=== PATIENT | male | born 1990 | race African-American/Black ===

== ENCOUNTER 2016-08-17 10:25 | Emergency (ER) | payer BC ==
--- NOTE | 2016-08-17 10:53 | EDM.PDOC ---
ED HPI GENERAL MEDICAL PROBLEM - General Chief Complaint: General Stated Complaint: racing heart, inspiratory pain with breathing Time Seen by Provider: 08/17/16 10:35 Source of Information: Reports: Patient History Limitations: Reports: No limitations - History of Present Illness INITIAL COMMENTS - FREE TEXT/NARRATIVE: The patient presents with complaint of chest pain that he has had beginning on Sunday. He reports on Sunday he was doing a push-up and felt something pop and pull in his left chest. Since then he has had pain constantly but it has worsened today and is worsened with movement and inspiration/expiration. He notes he does have pain on palpation of the chest overlying the superior margin of the left pectoralis muscle. He states the pain had increased while he was up going to get something out of his car and he also felt his "heart racing" at that time. He denies other symptoms or complaints. Left Upper Chest Pain Score (Numeric/FACES): 8 - Related Data Allergies Allergy/AdvReac Type Severity Reaction Status Date / Time No Known Allergies Allergy Verified 08/17/16 10:34 Home Meds: Home Meds Acetaminophen [Tylenol] 325 mg PO ASDIRECTED 10/20/14 [History] Ibuprofen [Advil] 200 mg PO ASDIRECTED 10/20/14 [History] Past Medical History - Past Health History Medical/Surgical History: Denies Medical/Surgical History Social & Family History - Tobacco Use Smoking Status *Q: Never Smoker Years of Tobacco use: 0 Used Tobacco, but Quit: No Second Hand Smoke Exposure: Yes - Alcohol Use Days Per Week of Alcohol Use: 0 (No previous DWI, etc.) Number of Drinks Per Day: 0 Total Drinks Per Week: 0 - Recreational Drug Use Recreational Drug Use: Yes Drug Use in Last 12 Months: No Recreational Drug Type: Reports: Marijuana/Hashish (Experimented at age 17) - Living Situation & Occupation Living situation: Reports: (April 2013, no children) Occupation: employed ([employer]) ED ROS GENERAL - Review of Systems Review Of Systems: ROS reveals no pertinent complaints other than HPI. ED EXAM, GENERAL - Physical Exam Exam: See Below Exam Limited By: No limitations General Appearance: alert, WD/WN, no apparent distress Eye Exam: bilateral eye: EOMI, normal inspection, PERRL Ears: normal external exam, normal canal, hearing grossly normal, normal TMs Ear Exam: bilateral ear: auricle normal, canal normal, TM normal Nose: normal inspection, normal mucosa, no blood Throat/Mouth: Normal inspection, Normal lips, Normal teeth, Normal gums, Normal oropharynx, Normal voice, No airway compromise Head: atraumatic, normocephalic Neck: normal inspection, supple, non-tender, full range of motion Respiratory/Chest: no respiratory distress, lungs clear, normal breath sounds, no accessory muscle use, other (Tenderness on palpation of superior margin of left pectoralis muscle and pain is reproduced when patient moves left arm. No palpable tears or defects in pectoralis muscle and no erythema, calor, swelling , or fluctuance. ) Cardiovascular: normal peripheral pulses, regular rate, rhythm, no edema, no gallop, no murmur, no rub Peripheral Pulses: 2+: radial (L), radial (R), dorsalis pedis (L), dorsalis pedis (R) GI/Abdominal: normal bowel sounds, soft, non tender, no organomegaly, no distention Back Exam: normal inspection, full range of motion. No: CVA tenderness (L), CVA tenderness (R), paraspinal tenderness, vertebral tenderness Extremities: normal inspection, normal range of motion, non-tender, no pedal edema, normal capillary refill Neurological: alert, oriented, CN II-XII intact, normal cognition, normal gait, normal reflexes, no motor/sensory deficits Skin Exam: Warm, Dry, Intact, Normal color, No rash Lymphatic: no adenopathy EKG INTERPRETATION EKG Date: 08/17/16 Time: 10:47 Rhythm: NSR Rate (beats/min): 76 [place]: normal P-wave: present QRS: normal ST-T: normal QT: normal Comparison: NA - no prior EKG EKG Interpretation Comments: Normal EKG. No ST elevation or signs of ischemia or other abnormalities. Course - Vital Signs Last Recorded V/S: Last Vital Signs Temp 36.7 C 08/17/16 10:25 Pulse 78 08/17/16 12:00 Resp 14 08/17/16 12:00 BP 118/72 08/17/16 12:00 Pulse Ox 99 08/17/16 12:00 - Orders/Labs/Meds Orders: Active Orders 24 hr Category Date Time Status EKG Documentation Completion [RC] ASDIRECTED Care 04/27/17 10:40 Active Chest 1V Frontal [CR] Stat Exams 08/17/16 10:43 Taken Labs: Laboratory Tests 08/17/16 08/17/16 Range/Units 10:45 10:45 WBC 3.6 L (4.0-10.2) K/uL RBC 4.76 (4.33-5.41) M/uL Hgb 14.8 D (13.1-16.8) g/dL Hct 42.0 (39.0-49.0) % MCV 88.2 (84.0-98.0) fL MCH 31.1 (28.2-33.3) pg MCHC 35.2 (31.7-36.0) g/dL RDW 11.8 (11.2-14.1) % Plt Count 287 (150-350) K/uL Neut % (Auto) 60.3 (45.0-80.0) % Lymph % (Auto) 25.2 (10.0-50.0) % [place] % (Auto) 7.8 (2.0-14.0) % Eos % (Auto) 5.0 (0.0-5.0) % Baso % (Auto) 1.7 (0.0-2.0) % Neut # (Auto) 2.15 (1.40-7.00) K/uL Lymph # (Auto) 0.90 (0.50-3.50) K/uL [place] # (Auto) 0.28 (0.00-1.00) K/uL Eos # (Auto) 0.18 (0.00-0.50) K/uL Baso # (Auto) 0.06 (0.00-0.20) K/uL Sodium 140 (136-145) mmol/L Potassium 3.8 (3.5-5.1) mmol/L Chloride 104 (98-107) mmol/L Carbon Dioxide 27.7 (21.0-32.0) mmol/L BUN 11 (7-18) mg/dL Creatinine 0.93 (0.51-1.17) mg/dL Est Cr Clr Drug Dosing 99.90 mL/min Estimated GFR (MDRD) > 60 mL/min Glucose 100 (74-106) mg/dL Calcium 8.7 (8.5-10.1) mg/dL Total Bilirubin 0.5 (0.2-1.0) mg/dL AST 18 (15-37) U/L ALT 36 (12-78) U/L Alkaline Phosphatase 56 (46-116) IU/L Creatine Kinase 148 (26-308) U/L Creatine Kinase Index 0.9 (0.0-2.5) % CK-MB (CK-2) 1.40 (0.00-3.60) ng/mL Troponin I 0.000 (0.000-0.056) ng/mL Total Protein 7.1 (6.4-8.2) g/dL Albumin 3.6 (3.4-5.0) g/dL Meds: Medications Discontinued Medications Generic Name Dose Route Start Last Admin Trade Name Freq PRN Reason Stop Dose Admin Ketorolac Tromethamine 60 mg 08/17/16 12:43 Toradol IM 08/17/16 12:44 ONETIME ONE - Radiology Interpretation Free Text/Narrative:: CXR negative. Departure - Departure Time of Disposition: 13:15 Disposition: Home, Self-Care 01 Clinical Impression: Muscle strain of chest wall Qualifiers: Encounter type: initial encounter Qualified Code(s): S29.011A - Strain of muscle and tendon of front wall of thorax, initial encounter Referrals: PCP,Unknown [Primary Care Provider] - Forms: ED Department Discharge - My Orders Last 24 Hours: My Active Orders 08/17/16 10:40 EKG Documentation Completion [RC] ASDIRECTED 08/17/16 10:43 Chest 1V Frontal [CR] Stat - Assessment/Plan Last 24 Hours: My Active Orders 08/17/16 10:40 EKG Documentation Completion [RC] ASDIRECTED 08/17/16 10:43 Chest 1V Frontal [CR] Stat Assessment:: Muscle strain of chest wall, left pectoralis. Plan: 1. Ruled out acute WI and other emergent causes of chest pain. 2. Toradol 60 mg IM in ER x 1. 3. Instructed may begin OTC ibuprofen 400-800 mg every 6 hours as needed for pain. 4. Ice affected area in 20 minute cycles every 1-2 hours as able and as tolerated. 5. Gradually advance activity and lifting as tolerated. 6. Followup with PCP in 5-7 days if symptoms persist or sooner if symptoms worsen. 7. Return to ER with increased/refractory/severe chest pain, shortness of breath , racing heart, refractory palpitations, or other emergent concerns.
[2016-08-17 11:25] LABS: CHLORIDE,CL 104 mmol/L (98-107); SODIUM,NA 140 mmol/L (136-145)
[2016-08-17] MEDS ORDERED: Ketorolac 60 MG/2 ML SDV IM ONE (12:43)
[2016-08-18 20:48] VITALS: BP 109/57
== END 2016-08-18 13:35 | disposition home or self-care (01) ==
LOC: LL.ED 10:25
DX: S29.011A Strain of muscle and tendon of front wall of thorax, initial encounter (principal); X58.XXXA Exposure to other specified factors, initial encounter
CPT/HCPCS: 36415; 71010; 80053; 82550; 82553; 84484; 85025; 93005; 96372; 99284; J1885

== ENCOUNTER 2017-02-02 12:58 | Emergency (ER) | payer BC, OTHER ==
[2017-02-02 13:40] LABS: CHLORIDE,CL 102 mmol/L (98-107); SODIUM,NA 139 mmol/L (136-145)
[2017-02-02] MEDS ORDERED: Diphtheria,Pertussis(Acell),Tetanus Vaccine 0.5 ML SDV ONE (14:17)
[2017-02-02] MEDS ORDERED: HYDROmorphone 1 MG/ML Syringe IVPUSH ONE (14:38)
--- NOTE | 2017-02-02 16:08 | ER ---
HISTORY OF PRESENT ILLNESS: The patient is a 26-year-old, who works at [employer], patient was at work, working with a hoist, he was picking up a blade. States that the hoist started moving, hitting him in the right shoulder, right neck, ending up in his left ankle. The patient denies loss of consciousness. Denies being diaphoretic, was brought in by ambulance for evaluation. He has limited range of motion. PHYSICAL EXAMINATION: GENERAL: He is alert. LUNGS: Clear. HEENT: At this time, he was examined, he is normocephalic and atraumatic. NECK: Has neck pain on range of motion, but feels pretty stable. MUSCULOSKELETAL: He complains of right shoulder pain. He has full range of motion of his right shoulder and left shoulder. He has a bilateral left chest pain of an incident. HEART: Regular rate and rhythm. SKIN: Dry and Intact. LABORATORY DATA: A chest x-ray was obtained, which reveal no contusions at this time, and we went ahead and x-rayed his right shoulder which was significant for normal x-ray. ASSESSMENT: Multiple trauma. Trauma to chest, right shoulder, and left ankle. No fractures. No ARDS. PLAN: At this time, we will ice the neck and shoulder and ankle. We will probably put him on a Cam walker to ambulate on left ankle, and Motrin for pain. AGUSTÍN Marshall MD /[id number] MTDD
== END 2017-02-02 16:00 | disposition home or self-care (01) ==
LOC: LL.ED 12:58
DX: S29.9XXA Unspecified injury of thorax, initial encounter (principal); S49.91XA Unspecified injury of right shoulder and upper arm, initial encounter; S99.912A Unspecified injury of left ankle, initial encounter; X58.XXXA Exposure to other specified factors, initial encounter
CPT/HCPCS: 36415; 71010; 72125; 73020; 73610; 80053; 82550; 82553; 83605; 84484; 85025; 90715; 96374; 99285; J1170

== ENCOUNTER 2018-06-19 23:02 | Emergency (ER) | payer OTHER ==
--- NOTE | 2018-06-19 23:09 | EDM.PDOC ---
ED HPI GENERAL MEDICAL PROBLEM - General Chief Complaint: General Stated Complaint: R HAND #5 DIGIT INJURY Time Seen by Provider: 06/19/18 23:05 Source of Information: Reports: Patient, Old Records ([facility] EMR. No paper hospital chart available.) History Limitations: Reports: No Limitations - History of Present Illness INITIAL COMMENTS - FREE TEXT/NARRATIVE: The patient was brought to the emergency room via transport vehicle from [facility] for evaluation of a Workmen's Compensation injury, including a contusion of digit #5 of the right hand, which occurred at about 22:05 hours this evening. The patient apparently caught his finger on a metal plate with no previous injury to this digit. He is right-handed. He complains of 9-10/10 throbbing pain. No history of foreign body, paresthesias, fall, neurological deficits, or other complaints or injuries. The patient denies any chest pain/pressure, heart flutter, dizziness, orthostasis, orthopnea, diaphoresis, paresthesias, recent decreased exercise tolerance, or any other anginal-type symptoms. No recent history of abdominal pain, heartburn, nausea, diarrhea, melena, gross hematochezia, or any food intolerance, including fatty foods, etc.. The patient also denies any recent fever, cough, wheezing, dyspnea, etc.. Onset: Today, Sudden Onset Date: 06/19/18 Onset Time: 22:05 Duration: Constant Location: Reports: Upper Extremity, Right. Denies: Head, Face, Neck, Chest, Abdomen, Back, Pelvis, Upper Extremity, Left, Radiates to Quality: Reports: Same as Previous Episode, Throbbing Severity: Severe Improves with: Reports: Rest Worsens with: Reports: Movement Context: Reports: Trauma (As above) Associated Symptoms: Denies: Confusion, Chest Pain, Cough, Diaphoresis, Fever/ Chills, Headaches, Loss of Appetite, Nausea/Vomiting, Shortness of Breath, Syncope, Weakness Treatments [employer]: Reports: Cold Therapy Right Finger-Little Pain Score (Numeric/FACES): 9 - Related Data Allergies Allergy/AdvReac Type Severity Reaction Status Date / Time No Known Allergies Allergy Verified 06/19/18 23:17 Past Medical History HEENT History: Reports: None. Denies: Hard of Hearing, Impaired Vision Cardiovascular History: Reports: None. Denies: CAD, Hypertension Respiratory History: Reports: None Gastrointestinal History: Reports: GERD. Denies: Hepatitis, Pancreatitis Genitourinary History: Reports: None Musculoskeletal History: Reports: Arthritis, Back Pain, Chronic, Osteoarthritis , Other (See Below). Denies: Fracture Other Musculoskeletal History: Right-sided L5 sacralization Neurological History: Reports: Concussion, Headaches, Chronic, Head Trauma, Other (See Below). Denies: Migraines Other Neuro History: Head concussion in 2012. Psychiatric History: Reports: Anxiety, Depression Endocrine/Metabolic History: Reports: None Hematologic History: Denies: Anemia, Blood Transfusion(s) Immunologic History: Reports: None Oncologic (Cancer) History: Reports: None Dermatologic History: Reports: None - Past Surgical History Male Surgical History: Reports: Circumcision, Other (See Below) Other Male Surgeries/Procedures: Circumcision as an infant. - Past Imaging History Past Imaging History: Reports: CAT Scan (CT of the neck on 02/02/[address] of the abdomen and pelvis on 10/22/14. CT of the head on 10/14/12.), MRI (Brain on 10/29.) Social & Family History - Tobacco Use Smoking Status *Q: Current Every Day Smoker Tobacco Use Within Last Twelve Months: Snuff/Dip Years of Tobacco use: 5 Packs/Tins Daily: 0.3 Packs/Tins Daily Comment: Started chewing tobacco at age 23 with previous cigarette use between ages 24 and 26 with about 2 cigarettes per day. Used Tobacco, but Quit: No Smoking Cessation Information Provided To Patient: Yes Second Hand Smoke Exposure: Yes Source of Second Hand Smoke Exposure: Roommate smokes Second Hand Smoke Education Provided: Yes - Alcohol Use Alcohol Use History: No Days Per Week of Alcohol Use: 0 Number of Drinks Per Day: 0 Number of Drinks Per Day Comment: No previous DWIs, problems with alcohol abuse , etc. Total Drinks Per Week: 0 Alcohol Use in Last Twelve Months: No - Recreational Drug Use Recreational Drug Use: Yes Drug Use in Last 12 Months: No Recreational Drug Type: Reports: Marijuana/Hashish (Experimented at age 17) - Living Situation & Occupation Living situation: Reports: (April 2013, no children), Other (Friend) Occupation: Employed ([employer]) ED ROS GENERAL - Review of Systems Review Of Systems: ROS reveals no pertinent complaints other than HPI. ED EXAM, GENERAL - Physical Exam Exam: See Below Exam Limited By: No Limitations General Appearance: Alert, WD/WN, No Apparent Distress Head: Atraumatic, Normocephalic Neck: Normal Inspection, Supple, Non-Tender, Full Range of Motion. No: Lymphadenopathy (L), Lymphadenopathy (R), Thyromegaly Respiratory/Chest: No Respiratory Distress, Lungs Clear, Normal Breath Sounds, No Accessory Muscle Use, Chest Non-Tender. No: Pleural Rub, Retractions Cardiovascular: Normal Peripheral Pulses, Regular Rate, Rhythm, No Edema, No Gallop, No JVD, No Murmur, No Rub. No: Gallop/S3, Gallop/S4, Friction Rub Peripheral Pulses: 2+: Radial (L), Radial (R) GI/Abdominal: Normal Bowel Sounds, Soft, Non-Tender, No Organomegaly, No Distention, No Abnormal Bruit, No Mass, Pelvis Stable. No: Guarding (Male) Exam: Deferred Rectal (Males) Exam: Deferred Back Exam: Normal Inspection, Full Range of Motion. No: CVA Tenderness (L), CVA Tenderness (R), Muscle Spasm Extremities: Normal Range of Motion, No Pedal Edema, Other (Mild palpation pain over the distal phalanx of digit #5 of the right hand with a small sub-ungual hematoma. 12 millimeters abrasion over the tip of the same digit with no evidence of foreign body, dislocation, deformity, etc.). No: Joint Swelling, Tabatha's Sign Neurological: Alert, Oriented, CN II-XII Intact, Normal Cognition, Normal Gait, No Motor/Sensory Deficits Psychiatric: Normal Affect, Normal Mood Skin Exam: Warm, Dry, Normal Color, No Rash, Wound/Incision (As above). No: Diaphoretic, Ecchymosis Lymphatic: No Adenopathy Course - Vital Signs Last Recorded V/S: Last Vital Signs Temp 36.8 C 06/19/18 23:11 Pulse 82 06/19/18 23:11 Resp 16 06/19/18 23:11 BP 112/74 06/19/18 23:11 Pulse Ox 100 06/19/18 23:11 Vital Signs - 24 hr 06/19/18 23:11 Temperature [ 36.8 C Temporal] Pulse, 82 Peripheral [ Left Pulse Oximetry] Respiratory 16 Rate Blood Pressure 112/74 [Left Upper Arm ] O2 Sat by Pulse 100 Oximetry - Orders/Labs/Meds Orders: Active Orders 24 hr Category Date Time Status Fingers Fifth Digit Rt F9 [CR] Stat Exams 06/19/18 23:09 Ordered Durable Medical Equipment for Discharge [DME for Oth 06/19/18 23:33 Ordered Discharge] [COMM] Routine Obtain Past Medical Record [OM.PC] Routine Oth 06/19/18 23:09 Active Labs: None Meds: Medications Discontinued Medications Generic Name Dose Route Start Last Admin Trade Name Ivelisse PRN Reason Stop Dose Admin Ketorolac Tromethamine 60 mg 06/19/18 23:35 06/19/18 23:40 Toradol IM 06/19/18 23:36 60 mg ONETIME ONE Administration - Radiology Interpretation Free Text/Narrative:: X-rays of digit #5 of the right hand shows a small displaced avulsion fracture of the tip of the distal phalanx no evidence of foreign body, other dislocation , etc. Departure - Departure Time of Disposition: 00:00 Disposition: Home, Self-Care 01 Condition: Good Clinical Impression: Tobacco abuse counseling, Mixed anxiety depressive disorder, Fracture, Abrasion Contusion Qualifiers: Encounter type: initial encounter Contusion area: finger Finger: little finger Damage to nail status: with damage Laterality: right Qualified Code(s): S60.151A - Contusion of right little finger with damage to nail, initial encounter - Discharge Information *PRESCRIPTION DRUG MONITORING PROGRAM REVIEWED*: Not Applicable *COPY OF PRESCRIPTION DRUG MONITORING REPORT IN PATIENT JEANNIE: Not Applicable Instructions: Coping with Quitting Smoking, Avulsion Fracture of the Hand Referrals: Curry Coronado PA [Primary Care Provider] - Forms: ED Department Discharge Additional Instructions: 1. Followup with your regular provider in 7 days as directed for reevaluation and recommended repeat finger x-ray. Bring these discharge instructions with you to that visit. 2. Tylenol 650 mg by mouth every 4 hours and/or OTC ibuprofen 2-3 tabs by mouth every 6 hours with food as directed./needed. You may stagger these medications for 48-72 hours only, which essentially means that you are receiving a pain medication about every 2 hours. Next dose of ibuprofen in 6 hours as needed secondary to medications given in the emergency room. 3. Work excuse- See Form 4. Finger splint was be worn at all times with exception of bathing and wound care until otherwise directed by your regular provider 5. Antibacterial soap wash/soak with subsequent antibacterial dressing such as Neosporin, etc. as directed 2 times per day until the wound or laceration site completely heals. Keep the area clean and dry with activity restrictions as discussed. Never use hydroperoxide for wound care. 6. Stop all tobacco use RHONDA as directed/per provided information and consider contacting Quit LIne, etc.. 7. Immediately after this visit verify that your cellular telephone's voicemail has been activated and is empty. Also verify that your home telephone 's answering machine is operating properly and has space to receive messages. Note that it is sometimes necessary for us to be able to contact you at a later date to discuss your medical care. 8. Please remember that we are ALWAYS here for you and want to answer any questions you may have. Feel free to call the hospital any time and we call you back RHONDA. - Problem List & Annotations (1) Fracture SNOMED Code(s): 423418032 Code(s): T14.8XXA - OTHER INJURY OF UNSPECIFIED BODY REGION, INITIAL ENCOUNTER Status: Acute Priority: High Onset Date: 06/19/18 Annotation/ Comment:: Small avulsion fracture as above. Close follow-up by regular provider. [employer] work excuse and Workmen's Compensation forms were completed. Finger splint provided. Symptomatic relief as per discharge instructions. (2) Contusion SNOMED Code(s): 710947961 Code(s): T14.8XXA - OTHER INJURY OF UNSPECIFIED BODY REGION, INITIAL ENCOUNTER Status: Acute Priority: High Onset Date: 06/19/18 Annotation/ Comment:: Finger contusion with secondary mild subungual hematoma not requiring treatment at this time. No evidence of significant laceration, nail injury, etc. Qualifiers: Encounter type: initial encounter Contusion area: finger Finger: little finger Damage to nail status: with damage Laterality: right Qualified Code (s): S60.151A - Contusion of right little finger with damage to nail, initial encounter (3) Abrasion SNOMED Code(s): 586546429 Code(s): T14.8XXA - OTHER INJURY OF UNSPECIFIED BODY REGION, INITIAL ENCOUNTER Status: Acute Priority: Medium Onset Date: 06/19/18 Annotation /Comment:: Minor abrasion versus skin defect from pressure of the injury with no evidence of foreign body, etc. DTaP verified by ER nurse with last immunization on 02/02/17. Wound care discussed. (4) Tobacco abuse counseling SNOMED Code(s): 734123382, 822722699, 434588661 Code(s): Z71.6 - TOBACCO ABUSE COUNSELING Status: Chronic Priority: Medium Annotation/Comment:: Patient counseled on the use of Nicorette gum. Tobacco cessation strongly encouraged both for him and his roommate with tobacco cessation information provided. - Problem List Review Problem List Initiated/Reviewed/Updated: Yes - My Orders Last 24 Hours: My Active Orders 06/19/18 23:09 Fingers Fifth Digit Rt F9 [CR] Stat Obtain Past Medical Record [OM.PC] Routine 06/19/18 23:33 Durable Medical Equipment for Discharge [DME for Discharge] [COMM] Routine - Assessment/Plan Last 24 Hours: My Active Orders 06/19/18 23:09 Fingers Fifth Digit Rt F9 [CR] Stat Obtain Past Medical Record [OM.PC] Routine 06/19/18 23:33 Durable Medical Equipment for Discharge [DME for Discharge] [COMM] Routine Assessment:: As above Plan: As above. Extensive precautions were given to the patient, who is in agreement with the treatment plan. See Patient Instructions for further treatment and plan.
[2018-06-19 23:14] VITALS: BP 112/74
[2018-06-19] MEDS ORDERED: Ketorolac 60 MG/2 ML SDV IM ONE (23:35)
== END 2018-06-19 23:55 | disposition home or self-care (01) ==
LOC: LL.ED 23:02
DX: S62.636A Displaced fracture of distal phalanx of right little finger, initial encounter for closed fracture (principal); F41.8 Other specified anxiety disorders; Y99.0 Civilian activity done for income or pay; F17.210 Nicotine dependence, cigarettes, uncomplicated; W23.0XXA Caught, crushed, jammed, or pinched between moving objects, initial encounter
CPT/HCPCS: 29130; 73140-F9; 96372; 99283-25; J1885